=== PATIENT | female | born 1990 | race Caucasian/White ===

== ENCOUNTER 2019-03-19 09:34 | Outpatient (CLI) | payer OTHER | END 2019-03-19 14:59 | disposition home or self-care (01) | LOC: LAB 09:34 | DX: E03.8 Other specified hypothyroidism (principal); E06.3 Autoimmune thyroiditis; E04.2 Nontoxic multinodular goiter; E66.3 Overweight; Z13.1 Encounter for screening for diabetes mellitus; Z13.220 Encounter for screening for lipoid disorders; Z13.228 Encounter for screening for other metabolic disorders ==

== ENCOUNTER 2019-07-06 19:57 | Emergency (ER) | payer OTHER ==
[~2019-07-06] VITALS: Ht 160 cm; Wt 63.5 kg
[2019-07-06] MEDS ORDERED: SYNTHROID50 MCG (20:15)
== END 2019-07-06 22:06 | disposition home or self-care (01) ==
LOC: ER 19:57
DX: B34.9 Viral infection, unspecified (principal); J02.9 Acute pharyngitis, unspecified

== ENCOUNTER 2019-07-09 17:44 | Emergency (ER) | payer OTHER ==
[~2019-07-09] VITALS: Ht 160 cm; Wt 65.8 kg
[~2019-07-09 17:44] MED LIST: SYNTHROID50 MCG
== END 2019-07-10 00:24 | disposition home or self-care (01) ==
LOC: ER 17:44
DX: R13.19 Other dysphagia (principal)

== ENCOUNTER 2019-07-13 09:55 | Outpatient (CLI) | payer OTHER | END 2019-07-13 10:06 | disposition home or self-care (01) | LOC: LAB 09:55 → RX STUDY 11:45 | DX: D64.89 Other specified anemias (principal); Z20.828 Contact with and (suspected) exposure to other viral communicable diseases ==

== ENCOUNTER 2019-07-13 11:51 | Outpatient (CLI) | payer OTHER | END 2019-07-13 11:52 | disposition home or self-care (01) | LOC: RX STUDY 11:51 | DX: R13.19 Other dysphagia (principal) ==